=== PATIENT | male | born 1965 | race African-American/Black ===

== ENCOUNTER 2018-07-21 13:38 | Inpatient (IN) | payer MEDICAID ==
[~2018-07-21] VITALS: Ht 188 cm; Wt 86.7 kg
[~2018-07-21 13:38] MED LIST: ARIP15TA2 MT; DIVA500T3 PO; SERT100T PO
[2018-07-21] MEDS ORDERED: METHYLPREDNISOLONE SOD SUCC 125 MG/2 ML VIAL IV STA (14:37)
[2018-07-21] MEDS ORDERED: ALBUTEROL (0.083%) 2.5MG/3ML NEB HHN STA ×2 (14:37→17:41)
[2018-07-21] MEDS ORDERED: IPRATROPIUM BROMIDE (0.02%) 0.5MG/2.5ML NEB HHN STA (14:37)
[2018-07-21] MEDS ORDERED: OLANZAPINE 10MG TABLET PO SCH (14:45)
[2018-07-21] MEDS ORDERED: ALBUTEROL (0.5%) 2.5MG/0.5ML NEB HHN ONE (15:05)
[2018-07-21 15:21] LABS: CHLORIDE 100 mEq/L (98-107)
[2018-07-21 15:24] LABS: BASOPHILS % 0.6 % (0.0-2.0); EOSINOPHILS % 1.4 % (0.0-5.0); HEMATOCRIT. 50.1 % (42.0-52.0); HEMOGLOBIN. 17.4 g/dL (14.0-18.0); LYMPHOCYTES % 18.8 % (20.0-50.0); MEAN CORPUSCULAR HEMOGLOBIN 32.6 pg (28.0-32.0); MEAN CORPUSCULAR VOLUME 94.1 fL (80.0-94.0); MEAN PLATELET VOLUME 7.5 fl (7.4-10.4); MONOCYTES % 5.1 % (2.0-8.0); NEUTROPHILS % 74.1 % (40.0-76.0); PLATELET 210 x1000/uL (130-400); RED BLOOD CELL COUNT 5.32 mill/uL (4.7-6.1); RED CELL DISTRIBUTION WIDTH 13.7 % (11.6-14.6)
[2018-07-21 15:26] LABS: ETHANOL BLOOD 245 mg/dL
[2018-07-21] MEDS ORDERED: DEXTROSE 50% WATER 50ML SYRINGE IV ONE (16:30)
[2018-07-21 16:59] LABS: CLARITY URINE CLEAR (CLEAR); COLOR URINE YELLOW (YELLOW); KETONES URINE 1+ (NEGATIVE); LEUKOCYTE ESTERASE URINE NEGATIVE (NEGATIVE); NITRITE URINE NEGATIVE (NEGATIVE); OCCULT BLOOD URINE NEGATIVE (NEGATIVE); PH URINE 5.5 (4.5-8.0); PROTEIN URINE TRACE (NEGATIVE); SPECIFIC GRAVITY URINE 1.015 (1.005-1.030); UROBILINOGEN URINE 0.2 E.U./dL (0.2-1.0)
[2018-07-21 17:15] LABS: *AMPHETAMINES SCREEN URINE NEGATIVE (NEGATIVE); *BARBITURATES SCREEN URINE NEGATIVE (NEGATIVE); *BENZODIAZEPINES SCREEN URINE NEGATIVE (NEGATIVE); *COCAINE SCREEN URINE NEGATIVE (NEGATIVE)
[2018-07-21 17:16] LABS: CANNABINOID URINE SCREEN PRESUMTIVE POSITIVE (NEGATIVE); METHADONE URINE SCREEN NEGATIVE (NEGATIVE); OPIATES URINE SCREEN NEGATIVE (NEGATIVE); PHENCYCLIDINE URINE SCREEN NEGATIVE (NEGATIVE)
[2018-07-21] MEDS ORDERED: ONDANSETRON HCL 4MG/2ML INJ IV PRN (20:00)
[2018-07-21] MEDS ORDERED: HYDROCODONE/ACETAMINOPHEN 10/325MG TABLET PO PRN (20:00)
[2018-07-21] MEDS ORDERED: ACETAMINOPHEN 650MG SUPP PR PRN (20:00)
[2018-07-21] MEDS ORDERED: ACETAMINOPHEN 325MG TABLET PO PRN (20:00)
[2018-07-21] MEDS ORDERED: ACETAMINOPHEN 650MG/20.3ML UDC GT PRN (20:00)
[2018-07-21] MEDS ORDERED: HYDROCODONE/ACETAMINOPHEN 5/325MG TABLET PO PRN (20:00)
[2018-07-21 23:14] LABS: CREATINE KINASE MB FRACTION 1.9 ng/mL (0.5-3.6)
[2018-07-22 06:38] LABS: HEMATOCRIT. 47.3 % (42.0-52.0); HEMOGLOBIN. 16.2 g/dL (14.0-18.0); MEAN CORPUSCULAR HEMOGLOBIN 32.2 pg (28.0-32.0); MEAN CORPUSCULAR VOLUME 94.2 fL (80.0-94.0); MEAN PLATELET VOLUME 8.3 fl (7.4-10.4); PLATELET 183 x1000/uL (130-400); RED BLOOD CELL COUNT 5.02 mill/uL (4.7-6.1); RED CELL DISTRIBUTION WIDTH 13.4 % (11.6-14.6)
[2018-07-22 06:47] LABS: CHLORIDE 98 mEq/L (98-107)
[2018-07-22 06:56] LABS: LDL CHOLESTEROL 108 mg/dL (5-100)
[2018-07-22 06:57] LABS: CREATINE KINASE 118 IU/L (39-308); CREATINE KINASE MB FRACTION 2.3 ng/mL (0.5-3.6); HDL CHOLESTEROL 64 mg/dL (40-59); T4 FREE 1.02 ng/dL (0.76-1.46)
[2018-07-22 07:13] LABS: PLATELET ESTIMATE NORMAL
[2018-07-22 11:32] VITALS: BP 123/64
[2018-07-22 12:30] VITALS: BP 123/64
[2018-07-22] MEDS: THIAMINE HCL 100MG TABLET PO SCH ×2 (14:20→18:30)
[2018-07-22] MEDS: FOLIC ACID 1MG TABLET PO SCH (14:20)
[2018-07-22] MEDS: MULTIVITAMINS,THER W-MINERALS TABLET PO SCH (14:20)
[2018-07-22] MEDS: METHYLPREDNISOLONE SOD SUCC 40 MG/ML VIAL IV SCH ×2 (14:20→21:29)
[2018-07-22] MEDS: DEXT 5%/0.45% NACL 1000ML 1,000 ML IV SCH (14:44)
[2018-07-22 16:00] VITALS: BP 106/60
[2018-07-22] MEDS ORDERED: LORAZEPAM 2MG/ML CPJ IV PRN ×2 (18:30)
[2018-07-22] MEDS: SERTRALINE HCL 100MG TABLET PO SCH (18:57)
[2018-07-22] MEDS: NICOTINE 21MG PATCH TD SCH (19:22)
[2018-07-22 20:00] VITALS: BP 137/73
[2018-07-22 20:12] LABS: AMMONIA 32 uMol/L (<32)
[2018-07-22 20:28] LABS: FOLIC ACID (FOLATE) SERUM 13.9 ng/mL (>5.38)
[2018-07-22] MEDS: IPRATROPIUM/ALBUTEROL 0.5-3(2.5)MG/3ML NEB INH SCH (21:01)
[2018-07-22] MEDS: ARIPIPRAZOLE 15MG TABLET PO SCH (21:29)
[2018-07-23] VITALS (7 sets, daily range): BP systolic 105–151; BP diastolic 50–89
[2018-07-23] MEDS: IPRATROPIUM/ALBUTEROL 0.5-3(2.5)MG/3ML NEB INH SCH ×6 (01:27→21:08)
[2018-07-23] MEDS: DEXT 5%/0.45% NACL 1000ML 1,000 ML IV SCH (01:36)
[2018-07-23] MEDS: METHYLPREDNISOLONE SOD SUCC 40 MG/ML VIAL IV SCH ×3 (05:55→21:30)
[2018-07-23 06:35] LABS: BASOPHILS % 0.2 % (0.0-2.0); HEMATOCRIT. 45.7 % (42.0-52.0); HEMOGLOBIN. 16.1 g/dL (14.0-18.0); LYMPHOCYTES % 8.3 % (20.0-50.0); MEAN CORPUSCULAR HEMOGLOBIN 33.3 pg (28.0-32.0); MEAN CORPUSCULAR VOLUME 94.5 fL (80.0-94.0); MEAN PLATELET VOLUME 8.6 fl (7.4-10.4); MONOCYTES % 3.7 % (2.0-8.0); NEUTROPHILS % 87.8 % (40.0-76.0); PLATELET 164 x1000/uL (130-400); RED BLOOD CELL COUNT 4.83 mill/uL (4.7-6.1); RED CELL DISTRIBUTION WIDTH 13.4 % (11.6-14.6)
[2018-07-23 07:25] LABS: CHLORIDE 101 mEq/L (98-107)
[2018-07-23] MEDS: THIAMINE HCL 100MG TABLET PO SCH ×2 (09:00→09:22)
[2018-07-23] MEDS: SERTRALINE HCL 100MG TABLET PO SCH (09:22)
[2018-07-23] MEDS: FOLIC ACID 1MG TABLET PO SCH ×2 (09:22→09:23)
[2018-07-23] MEDS: DIVALPROEX SODIUM 250MG DR TABLET PO SCH (09:22)
[2018-07-23] MEDS: MULTIVITAMINS,THER W-MINERALS TABLET PO SCH (09:22)
[2018-07-23] MEDS: NICOTINE 21MG PATCH TD SCH (09:22)
[2018-07-23] MEDS: MONTELUKAST SODIUM 10MG TABLET PO SCH (15:58)
[2018-07-23] MEDS: ARIPIPRAZOLE 15MG TABLET PO SCH (21:30)
[2018-07-23] MEDS: LORAZEPAM 2MG/ML CPJ IV PRN (21:40)
[2018-07-24] MEDS: IPRATROPIUM/ALBUTEROL 0.5-3(2.5)MG/3ML NEB INH SCH ×6 (00:23→21:00)
[2018-07-24] MEDS: LORAZEPAM 2MG/ML CPJ IV PRN ×2 (02:05→18:01)
[2018-07-24] MEDS: METHYLPREDNISOLONE SOD SUCC 40 MG/ML VIAL IV SCH ×2 (05:36→13:11)
[2018-07-24 08:00] VITALS: BP 128/65
[2018-07-24] MEDS ORDERED: HALOPERIDOL LACTATE 5MG/ML VIAL IM NR (08:15)
[2018-07-24] MEDS: THIAMINE HCL 100MG TABLET PO SCH (09:52)
[2018-07-24] MEDS: MULTIVITAMINS,THER W-MINERALS TABLET PO SCH (09:52)
[2018-07-24] MEDS: NICOTINE 21MG PATCH TD SCH (09:53)
[2018-07-24] MEDS: SERTRALINE HCL 100MG TABLET PO SCH (09:55)
[2018-07-24] MEDS: DIVALPROEX SODIUM 250MG DR TABLET PO SCH (09:55)
[2018-07-24 12:00] VITALS: BP 135/82
[2018-07-24] MEDS ORDERED: LORAZEPAM 2MG/ML CPJ IV PRN (14:00)
[2018-07-24 16:00] VITALS: BP 122/67
[2018-07-24] MEDS: MONTELUKAST SODIUM 10MG TABLET PO SCH (18:00)
[2018-07-24] MEDS: ARIPIPRAZOLE 15MG TABLET PO SCH (21:42)
[2018-07-24 23:11] VITALS: BP 117/68
[2018-07-25] MEDS: IPRATROPIUM/ALBUTEROL 0.5-3(2.5)MG/3ML NEB INH SCH ×6 (00:43→21:07)
[2018-07-25] MEDS: LORAZEPAM 2MG/ML CPJ IV PRN ×2 (02:58→21:47)
[2018-07-25 04:54] VITALS: BP 132/76
[2018-07-25 06:33] LABS: BASOPHILS % 0.1 % (0.0-2.0); EOSINOPHILS % 0.3 % (0.0-5.0); HEMATOCRIT. 48.8 % (42.0-52.0); HEMOGLOBIN. 16.6 g/dL (14.0-18.0); LYMPHOCYTES % 30.3 % (20.0-50.0); MEAN CORPUSCULAR HEMOGLOBIN 32.6 pg (28.0-32.0); MEAN CORPUSCULAR VOLUME 95.6 fL (80.0-94.0); MEAN PLATELET VOLUME 8.4 fl (7.4-10.4); MONOCYTES % 5.4 % (2.0-8.0); NEUTROPHILS % 63.9 % (40.0-76.0); PLATELET 127 x1000/uL (130-400); RED CELL DISTRIBUTION WIDTH 13.5 % (11.6-14.6)
[2018-07-25 07:05] LABS: CHLORIDE 103 mEq/L (98-107)
[2018-07-25 08:00] VITALS: BP 130/69
[2018-07-25] MEDS: PREDNISONE 20MG TABLET PO SCH (08:08)
[2018-07-25] MEDS: SERTRALINE HCL 100MG TABLET PO SCH (08:08)
[2018-07-25] MEDS: MULTIVITAMINS,THER W-MINERALS TABLET PO SCH (08:09)
[2018-07-25] MEDS: THIAMINE HCL 100MG TABLET PO SCH (08:09)
[2018-07-25] MEDS: FOLIC ACID 1MG TABLET PO SCH (08:09)
[2018-07-25] MEDS: NICOTINE 21MG PATCH TD SCH (08:10)
[2018-07-25] MEDS: DIVALPROEX SODIUM 250MG DR TABLET PO SCH (08:12)
[2018-07-25 12:00] VITALS: BP 124/78
[2018-07-25 16:00] VITALS: BP 131/82
[2018-07-25] MEDS ORDERED: P20 PO (16:44)
[2018-07-25] MEDS ORDERED: NICO-682 TD (16:44)
[2018-07-25] MEDS ORDERED: FOLI-43 PO (16:44)
[2018-07-25] MEDS ORDERED: MONT10TA21 PO (16:44)
[2018-07-25] MEDS ORDERED: THIA100T72 PO (16:44)
[2018-07-25] MEDS: MONTELUKAST SODIUM 10MG TABLET PO SCH (16:48)
[2018-07-25 19:35] VITALS: BP 122/69
[2018-07-25] MEDS: ARIPIPRAZOLE 15MG TABLET PO SCH (21:46)
[2018-07-26] VITALS: BP 119/75
[2018-07-26] MEDS: IPRATROPIUM/ALBUTEROL 0.5-3(2.5)MG/3ML NEB INH SCH ×4 (00:37→12:14)
[2018-07-26 08:00] VITALS: BP 119/77
[2018-07-26] MEDS: SERTRALINE HCL 100MG TABLET PO SCH (08:43)
[2018-07-26] MEDS: THIAMINE HCL 100MG TABLET PO SCH (08:43)
[2018-07-26] MEDS: DIVALPROEX SODIUM 250MG DR TABLET PO SCH (08:43)
[2018-07-26] MEDS: MULTIVITAMINS,THER W-MINERALS TABLET PO SCH (08:43)
[2018-07-26] MEDS: NICOTINE 21MG PATCH TD SCH (08:44)
[2018-07-26] MEDS: FOLIC ACID 1MG TABLET PO SCH (08:44)
[2018-07-26] MEDS: PREDNISONE 20MG TABLET PO SCH (08:44)
[2018-07-26 12:01] VITALS: BP 127/78
[2018-07-26 13:51] VITALS: BP 127/78
== END 2018-07-26 14:10 | disposition home or self-care (01) | DRG 140 ==
LOC: ER 15:43 → 7WST 18:41 → EDBEDREQ 18:45 → EDBEDREQTM 18:45 → ENRESERV 07-22 10:13
PROVIDERS: ADMIT Internal Medicine; ATTEND Internal Medicine
DX: J44.1 Chronic obstructive pulmonary disease with (acute) exacerbation (principal); J96.00 Acute respiratory failure, unspecified whether with hypoxia or hypercapnia; R45.851 Suicidal ideations; B19.20 Unspecified viral hepatitis C without hepatic coma; F25.9 Schizoaffective disorder, unspecified; F31.9 Bipolar disorder, unspecified; E11.649 Type 2 diabetes mellitus with hypoglycemia without coma; G40.909 Epilepsy, unspecified, not intractable, without status epilepticus; F10.10 Alcohol abuse, uncomplicated; Y90.9 Presence of alcohol in blood, level not specified; Z79.84 Long term (current) use of oral hypoglycemic drugs; Z79.899 Other long term (current) drug therapy; Z78.1 Physical restraint status
CPT/HCPCS: 36415; 71045; 80048; 80053; 80061; 80165; 80305; 80307; 80329; 81003; 82140; 82550; 82553; 82607; 82746; 82962; 83036; 83690; 83880; 84439; 84443; 84481; 84484; 85025; 93005; 93970; 94640; 96374; 96375; 97110; 97116; 97162; 97166; 97535; 99285; A6261; C1893; G0482; J1630; J2060; J2920; J2930; J7512; J7611; J7620

== ENCOUNTER 2018-08-20 11:21 | Inpatient (IN) | payer MEDICAID ==
[~2018-08-20] VITALS: Ht 177.8 cm; Wt 84.8 kg
[~2018-08-20 11:21] MED LIST changes: +FOLI-43 PO; +MONT10TA21 PO; +NICO-682 TD; +P20 PO; +THIA100T72 PO
[2018-08-20] MEDS ORDERED: ALBUTEROL (0.083%) 2.5MG/3ML NEB HHN STA ×2 (11:49→14:04)
[2018-08-20] MEDS ORDERED: IPRATROPIUM BROMIDE (0.02%) 0.5MG/2.5ML NEB HHN STA ×2 (11:49→14:04)
[2018-08-20] MEDS ORDERED: METHYLPREDNISOLONE SOD SUCC 125 MG/2 ML VIAL IV STA (11:49)
[2018-08-20] MEDS ORDERED: ASPIRIN 81MG TABLET PO ONE (12:00)
[2018-08-20 12:33] LABS: BASOPHILS % 0.7 % (0.0-2.0); EOSINOPHILS % 3.3 % (0.0-5.0); HEMOGLOBIN. 15.9 g/dL (14.0-18.0); LYMPHOCYTES % 29.8 % (20.0-50.0); MEAN CORPUSCULAR VOLUME 93.6 fL (80.0-94.0); MEAN PLATELET VOLUME 7.2 fl (7.4-10.4); MONOCYTES % 6.2 % (2.0-8.0); PLATELET 232 x1000/uL (130-400); RED BLOOD CELL COUNT 4.81 mill/uL (4.7-6.1); RED CELL DISTRIBUTION WIDTH 13.8 % (11.6-14.6)
[2018-08-20 12:40] LABS: CHLORIDE 107 mEq/L (98-107)
[2018-08-20] MEDS ORDERED: METHYLPREDNISOLONE SOD SUCC 125 MG/2 ML VIAL IM ONE (13:00)
[2018-08-20] MEDS ORDERED: GUAIFENESIN 200MG/10ML SUGAR FREE UDC PO PRN (15:30)
[2018-08-20] MEDS ORDERED: MAGNESIUM/ALUMINUM HYDROXIDE/SIMETHICONE 30ML UDC PO PRN (15:30)
[2018-08-20] MEDS ORDERED: HYDROCODONE/ACETAMINOPHEN 5/325MG TABLET PO PRN (15:30)
[2018-08-20] MEDS ORDERED: IPRATROPIUM/ALBUTEROL 0.5-3(2.5)MG/3ML NEB INH PRN (15:30)
[2018-08-20] MEDS ORDERED: ONDANSETRON HCL 4MG/2ML INJ IV PRN (15:30)
[2018-08-20] MEDS ORDERED: CLONIDINE 0.1MG TABLET PO PRN (15:30)
[2018-08-20] MEDS ORDERED: DOCUSATE SODIUM 100MG CAPSULE PO PRN (15:30)
[2018-08-20] MEDS ORDERED: ACETAMINOPHEN 325MG TABLET PO PRN (15:30)
[2018-08-20] MEDS ORDERED: LORAZEPAM 2MG/ML CPJ IV PRN (15:45)
[2018-08-20 16:49] LABS: FOLIC ACID (FOLATE) SERUM 15.4 ng/mL (>5.38)
[2018-08-20] MEDS ORDERED: MONTELUKAST SODIUM 10MG TABLET PO SCH (17:00)
[2018-08-20 18:09] VITALS: BP 132/75
[2018-08-20 20:00] VITALS: BP 118/71
[2018-08-20] MEDS ORDERED: METHYLPREDNISOLONE SOD SUCC 40 MG/ML VIAL IV SCH (21:00)
[2018-08-20] MEDS ORDERED: ARIPIPRAZOLE 10MG TABLET PO SCH (21:00)
[2018-08-20] MEDS ORDERED: BUDESONIDE 0.5MG/2ML NEB HHN SCH (21:00)
[2018-08-20 22:00] VITALS: BP 132/77
[2018-08-21] VITALS: BP 120/69
[2018-08-21 02:00] VITALS: BP 132/70
[2018-08-21] MEDS: IPRATROPIUM/ALBUTEROL 0.5-3(2.5)MG/3ML NEB HHN SCH ×2 (02:21→09:33)
[2018-08-21 04:00] VITALS: BP 132/74
[2018-08-21 06:00] VITALS: BP 123/71
[2018-08-21 06:06] LABS: CHLORIDE 102 mEq/L (98-107)
[2018-08-21 06:22] LABS: HEMATOCRIT. 44.2 % (42.0-52.0); HEMOGLOBIN. 15.2 g/dL (14.0-18.0); MEAN CORPUSCULAR HEMOGLOBIN 32.5 pg (28.0-32.0); MEAN CORPUSCULAR VOLUME 94.3 fL (80.0-94.0); MEAN PLATELET VOLUME 7.9 fl (7.4-10.4); PLATELET 209 x1000/uL (130-400); RED BLOOD CELL COUNT 4.69 mill/uL (4.7-6.1); RED CELL DISTRIBUTION WIDTH 13.2 % (11.6-14.6)
[2018-08-21 06:40] LABS: T4 FREE 0.82 ng/dL (0.76-1.46)
[2018-08-21 08:00] VITALS: BP 122/81
[2018-08-21] MEDS ORDERED: SERTRALINE HCL 100MG TABLET PO SCH (09:00)
[2018-08-21] MEDS ORDERED: DIVALPROEX SODIUM 500MG ER TABLET PO SCH (09:00)
[2018-08-21] MEDS ORDERED: MULTIVITAMINS,THER W-MINERALS TABLET PO SCH (09:00)
[2018-08-21] MEDS ORDERED: FOLIC ACID/VITAMIN B COMP W-C TABLET PO SCH (09:00)
[2018-08-21] MEDS ORDERED: THIAMINE HCL 100MG TABLET PO SCH (09:00)
[2018-08-21] MEDS ORDERED: FOLIC ACID 1MG TABLET PO SCH (09:00)
[2018-08-21 10:00] VITALS: BP 132/76
[2018-08-21 12:44] LABS: PLATELET ESTIMATE NORMAL
== END 2018-08-21 10:50 | disposition left against medical advice (07) | DRG 140 ==
LOC: ER 11:21 → 5EST 14:46 → EDBEDREQSVC 14:52 → EDBEDREQ 14:52 → ENRESERV 16:17 → 5EST 08-21 00:38
PROVIDERS: ADMIT Internal Medicine; ATTEND Internal Medicine
DX: J44.1 Chronic obstructive pulmonary disease with (acute) exacerbation (principal); J96.20 Acute and chronic respiratory failure, unspecified whether with hypoxia or hypercapnia; F25.9 Schizoaffective disorder, unspecified; B19.20 Unspecified viral hepatitis C without hepatic coma; E11.9 Type 2 diabetes mellitus without complications; F17.210 Nicotine dependence, cigarettes, uncomplicated; G40.909 Epilepsy, unspecified, not intractable, without status epilepticus; F10.10 Alcohol abuse, uncomplicated; F31.9 Bipolar disorder, unspecified; F41.9 Anxiety disorder, unspecified; Z60.2 Problems related to living alone; Z71.6 Tobacco abuse counseling; Z79.84 Long term (current) use of oral hypoglycemic drugs; Z79.899 Other long term (current) drug therapy
CPT/HCPCS: 36415; 71045; 80165; 82607; 82728; 82746; 82962; 83036; 83540; 83550; 83880; 84439; 84443; 84484; 93005; 96372; 99285; J2060; J2920; J2930; J7611; J7620; J7626